=== PATIENT | female | born 1975 | race Caucasian/White ===

== ENCOUNTER 2018-06-18 08:41 | Emergency (ER) | payer OTHER ==
[2018-06-18] MEDS: KETOROLAC 30 MG INJ IM (09:56)
== END 2018-06-18 13:45 | disposition home or self-care (01) ==
LOC: FTE 08:41
DX: R51 Headache (principal)
CPT/HCPCS: 81025; 96372; 99284-25

== ENCOUNTER 2018-10-26 09:45 | Emergency (ER) | payer OTHER | END 2018-10-26 12:45 | disposition home or self-care (01) | LOC: E/R 09:45 | DX: F32.1 Major depressive disorder, single episode, moderate (principal) | CPT/HCPCS: 99283; Z7502 ==